=== PATIENT | male | born 1985 | race Caucasian/White ===

== ENCOUNTER → 2016-09-13 | Outpatient (CLI) | payer OTHER ==
[2016-09-13 19:19] LABS: HEMATOCRIT 44.3 % (42-52); MEAN CELL VOLUME 87.9 fL (80-100); MEAN CORPUSCULAR HEMOGLOBIN 29.6 pg (25-34); MEAN PLATELET VOLUME 11.7 fL (7.4-10.4); PLATELET COUNT 279 K/uL (130-400); RED BLOOD COUNT 5.04 M/uL (4.7-6.1); WHITE BLOOD COUNT 8.46 K/uL (4.8-10.8)
--- NOTE | 2016-09-13 19:24 | DIAGNOSTIC IMAGING REPORT ---
CHEST 2 VIEWS ROUTINE CLINICAL HISTORY: SOB dyspnea COMPARISON STUDY: No previous studies for comparison. FINDINGS: The bones soft tissues and hemidiaphragms are normal. The cardiomediastinal silhouette is normal. The lungs are clear. The pulmonary vasculature is normal. IMPRESSION: Negative chest. Electronically signed by: Oj Valladares M.D. 09/13/2016 7:23 PM Dictated Date/Time: 09/13/2016 7:22 PM
[2016-09-13 20:00] LABS: MEAN CORPUSCULAR HGB CONC 33.6 g/dl (32-36)
== END | disposition home or self-care (01) ==
LOC: C.LAB 19:03
PROVIDERS: ATTEND Family Medicine
DX: R06.02 Shortness of breath (principal)